=== PATIENT | female | born 1980 ===

== ENCOUNTER 2017-06-28 13:12 | Emergency (ER) | payer SELFPAY ==
[2017-06-28 14:20] VITALS: BP 124/77
--- NOTE | 2017-06-28 18:44 | Emergency Department Report ---
Chief Complaint: Upper Respiratory Infection Stated Complaint: FLU LIKE SYMPTOMS Time Seen by Provider: 06/28/17 18:43 - Exam Vital Signs: Vital Signs 06/28/17 14:16 Temperature 97.9 F Pulse Rate 69 Respiratory 16 Rate Blood Pressure 124/77 O2 Sat by Pulse 100 Oximetry MSE screening note: Focused history and physical exam performed. Due to findings the following was ordered: ED Disposition for MSE Condition: Stable Referrals: PRIMARY CARE, [Primary Care Provider] - 3-5 Days
== END 2017-06-28 19:55 | disposition left against medical advice (07) ==
LOC: ED 13:12
DX: J11.1 Influenza due to unidentified influenza virus with other respiratory manifestations (principal); Z53.21 Procedure and treatment not carried out due to patient leaving prior to being seen by health care provider
CPT/HCPCS: 93005; 93010